=== PATIENT | male | born 1975 | race Caucasian/White ===

== ENCOUNTER 2024-04-08 06:44 | Emergency (ER) | payer MEDICAID, SELFPAY ==
[2024-04-08 06:46] VITALS: BMI 27.3
[2024-04-08 06:51] VITALS: BP 115/79; PULSE 88; RESP 18; TEMP 36.9; O2SAT 99
--- NOTE | 2024-04-08 07:10 | PD.EDWOUND ---
ED Wound/Laceration-RME/HPI General Chief Complaint: Wound/Laceration Stated Complaint: FOREHEAD LACERATION Time Seen by Provider: 04/08/24 06:51 Arrival date/time: 04/08/24 06:44 48-year-old male presents to the emergency department today stating he was having sexual relations with his girlfriend accidentally hit the headboard with his head and obtain laceration to his forehead patient reports no loss of conscious no vomiting no headache dizziness or weakness patient reports tetanus up-to-date Limitations: no limitations Related Data Allergies Allergy/AdvReac Type Severity Reaction Status Date / Time baclofen Allergy Unknown unknown Verified 04/08/24 06:50 Review of Systems Review of Systems Systems Reviewed: All systems reviewed, normal except as documented Constitutional Constitutional: Reports system reviewed and no additional complaints, except as documented, Denies fever(s) and Denies headache(s) Eyes Eyes: Reports system reviewed and no additional complaints, except as documented and Denies blurry vision ENT Ears, Nose, Mouth, and Throat: Reports system reviewed and no additional complaints, except as documented, Denies headache(s), Denies nasal congestion and Denies nasal discharge Cardiovascular Cardiovascular: Reports system reviewed and no additional complaints, except as documented, Denies chest pain and Denies dyspnea Respiratory Respiratory: Reports system reviewed and no additional complaints, except as documented, Denies chest congestion, Denies cough and Denies dyspnea Gastrointestinal Gastrointestinal: Reports system reviewed and no additional complaints, except as documented and Denies abdominal pain Integumentary/Breasts Skin/Breast: Reports system reviewed and no additional complaints, except as documented, Denies rash and Reports wounds (Laceration forehead) Neurologic Neurologic: Reports system reviewed and no additional complaints, except as documented, Reports as per HPI and Denies headache(s) Past Medical History Social History SMOKING STATUS: Current every day smoker ED Exam General Limitations: Present no limitations General appearance: Present alert and in no apparent distress Expanded Head Exam Head exam physical: Present laceration; Absent hematoma, raccoon eyes or Ramirez's sign Head image: 1. 3 cm Eye Eye exam: Present normal appearance, PERRL and EOMI ENT ENT exam: Present normal exam, normal oropharynx and mucous membranes moist Neck Neck exam: Present normal inspection, full ROM and trachea midline Chest Chest inspection: Present normal inspection and symmetric chest wall rise Respiratory Respiratory exam: Present normal lung sounds bilaterally Cardiovascular Cardiovascular exam: Present regular rate, normal rhythm and normal heart sounds Abdominal Exam Abdominal exam: Present soft and normal bowel sounds Extremities Exam Extremities exam: Present normal inspection and full ROM Back Exam Back exam: Present normal inspection and full ROM Neurological Exam Neurological exam: Present alert, oriented X3, CN II-XII intact, normal gait and reflexes normal; Absent motor sensory deficit Psychiatric Psychiatric exam: Present normal affect and normal mood Skin Skin exam: Present warm, dry, intact and normal color Course Quality Measures none Orders Category Date Time Status Set Up Suture Tray STAT Care 04/08/24 06:55 Active Wound Care NOW Care 04/08/24 06:55 Active Lidocaine 1% 20 ml [Xylocaine 1% 20 ML] Med 04/08/24 06:55 Discontinued 20 ml INFL X1 ONE Vital Signs Vital signs: Vital Signs Temperature 98.5 F 04/08/24 06:51 Pulse Rate 88 04/08/24 06:51 Respiratory Rate 18 04/08/24 06:51 Blood Pressure 115/79 04/08/24 06:51 Pulse Oximetry (%) 99 04/08/24 06:51 Oxygen Delivery Method Room Air 04/08/24 06:51 O2 saturation 99% on room air within normal limits Procedures -ED Laceration Laceration 1: Site: face Size (cm): 3 Description: linear and irregular Depth: simple, single layer Local Anesthetic: lidocaine 1% Amount of anesthesia used (mL): 4 Pre-repair: wound explored and irrigated extensively Skin layer closed with: nylon Size (cm): 5-0 Number of sutures: 6 Technique: simple, interrupted Wound / Laceration MDM Narrative MDM Narrative:: 48-year-old male presents to the emergency department today stating he was having sexual relations with his girlfriend accidentally hit the headboard with his head and obtain laceration to his forehead patient reports no loss of conscious no vomiting no headache dizziness or weakness patient reports tetanus up-to-date On examination patient well-appearing patient does not appear ill or toxic in no acute distress Patient pain laceration to forehead approximately 3 cm wound irrigated copiously laceration repaired sick sutures applied Patient has normal neurological exam does not meet criteria for CT scan Patient discharged home in no distress to follow-up with primary care doctor in the next 24 to 48 hours and for any worsening symptoms to return to the ER immediately Patient data External records reviewed:: [facility] previous records Clinical information provided by:: patient Social determinants that could affect healthcare access:: none Patient has the following chronic illnesses:: See history How is presenting disease/condition affected by chronic disease/condition?: uneffected by Evaluation data The following diagnostics were reviewed and interpreted by me:: other (specify) (N/A) Lab and/or radiology exams considered but not ordered:: Consider not ordered Interpretation Summary: N/A Medications / Prescriptions Medications or Prescriptions considered but not ordered:: Given Medication administrations:: Medication Administration History Discontinued Medications Lidocaine HCl (Lidocaine Hcl 1% 20 Ml Vial) 20 ml INFL X1 ONE Stop: 04/08/24 06:56 Given Consultations Consultation(s) initiated? (list below): No Diagnosis Wound Differential Diagnosis: laceration, abrasion and avulsion of skin Most likely diagnosis given after review of the tests above:: Laceration Admission Indicated Admission indicated?: not indicated Admission Request Was there a request for admission?: No Disposition Plan Disposition Plan: Discharge Discharge Attestation Discharge Attestation: The patient and all family members were given an opportunity to ask questions and understood the discharge instructions. Discharge instructions specifically effects, indications for sooner follow up or return to the emergency department, and the expected course of current diagnosis. Patient condition: Stable Discharge Plan Plan Patient Disposition: HOME (Self Care) Disposition Comment: Stable Problem List Clinical Impression: Laceration Patient/Caregiver Discharge Instructions Additional Instructions: Please follow up with your primary care doctor in the next 24-48hrs for any worsening symptoms return here immediately Please have your sutures removed in 7 days Print Language: Setswana Stand Alone Forms: Erin Award Info., Patient Portal Info Letter FRANKY/MJ Supervising Physician RICHARD Supervising Physician: Dr Cordero
[2024-04-08] MEDS: LIDOCAINE HCL 1% 20 ML VIAL INFL (07:19)
== END 2024-04-08 07:15 | disposition home or self-care (01) ==
LOC: SERX 07:34
PROVIDERS: Emergency Provider Emergency Medicine
DX: S01.81XA Laceration without foreign body of other part of head, initial encounter (principal); W22.8XXA Striking against or struck by other objects, initial encounter
CPT/HCPCS: 12013; 99283; J3490